=== PATIENT | female | born 1960 ===

== ENCOUNTER 2017-09-30 06:56 | Emergency (ER) | payer OTHER ==
[2017-09-30 07:23] VITALS: TEMP 97.1
[2017-09-30] MEDS ORDERED: Morphine 4 MG/ML VIAL ONE (07:26)
--- NOTE | 2017-09-30 07:34 | ED PDOC ---
HPI: Back Time Seen by Provider: 09/30/17 07:00 Chief Complaint (Nursing): Back Pain Chief Complaint (Provider): Back pain History Per: Patient History/Exam Limitations: no limitations Onset/Duration Of Symptoms: Days (x1), Worse Since (this morning) Current Symptoms Are (Timing): Still Present Quality Of Discomfort: Burning Previous Symptoms: Back Pain Associated Symptoms: Other (dysuria, hematuria) Additional Complaint(s): Elvie Rincon is a 57 year old female, with a past medical history of HTN, kidney stones, and fusion of lower back, who presents to the emergency department complaining of right sided back pain associated with dysuria and hematuria onset since yesterday. Patient states this morning the back pain was more severe and she noticed blood in her urine with a burning pain. Patient had a surgery in her right kidney when she was 11. She denies any fever, or chills. No further medical complaints. PMD: None provided. Past Medical History Reviewed: Historical Data, Nursing Documentation, Vital Signs Vital Signs: Last Vital Signs Temp 97.1 F L 09/30/17 07:14 Pulse 81 09/30/17 07:14 Resp 19 09/30/17 07:14 BP 177/123 H 09/30/17 07:14 Pulse Ox 99 09/30/17 07:14 - Medical History PMH: HTN, Kidney Stones, Migraine, Chronic Kidney Disease - Surgical History Surgical History: Appendectomy Other surgeries: fusion of lower back - Family History Family History: States: Unknown Family Hx - Social History Current smoker - smoking cessation education provided: No Alcohol: None Drugs: Denies - Home Medications Home Medications: Ambulatory Orders Medication Instructions Recorded Ciprofloxacin HCl [Cipro] 500 mg PO BID #14 tab 09/30/17 Tamsulosin [Flomax] 0.4 mg PO DAILY #14 cap 09/30/17 Valsartan [Diovan] 160 mg PO BID 09/30/17 oxyCODONE/Acetaminophen [Percocet 1 tab PO Q6H PRN #5 tab 09/30/17 5/325 mg Tab] - Allergies Allergies/Adverse Reactions: Allergies Allergy/AdvReac Type Severity Reaction Status Date / Time ketorolac [From Toradol] Allergy RASH Verified 09/30/17 07:13 NSAIDS (Non-Steroidal Allergy RASH Verified 09/30/17 07:13 Anti-Inflamma Penicillins Allergy RASH Verified 09/30/17 07:13 shellfish derived Allergy RASH Verified 09/30/17 07:13 sumatriptan [From Imitrex] Allergy RASH Verified 09/30/17 07:13 Review of Systems ROS Statement: Except As Marked, All Systems Reviewed And Found Negative Constitutional: Negative for: Fever, Chills Genitourinary Female: Positive for: Dysuria, Hematuria Musculoskeletal: Positive for: Back Pain (right sided) Physical Exam - Reviewed Nursing Documentation Reviewed: Yes Vital Signs Reviewed: Yes - Physical Exam Appears: Positive for: Non-toxic Head Exam: Positive for: ATRAUMATIC, NORMAL INSPECTION, NORMOCEPHALIC Skin: Positive for: Normal Color, Warm, Dry Eye Exam: Positive for: Normal appearance Neck: Positive for: Normal, Painless ROM, Supple Cardiovascular/Chest: Positive for: Regular Rate, Rhythm. Negative for: Murmur Respiratory: Positive for: Normal Breath Sounds. Negative for: Accessory Muscle Use, Respiratory Distress Gastrointestinal/Abdominal: Positive for: Tenderness (right ) Back: Positive for: R CVA Tenderness Extremity: Positive for: Normal ROM. Negative for: Deformity, Swelling Neurologic/Psych: Positive for: Alert, Oriented - Laboratory Results Result Diagrams: 09/30/17 08:06 09/30/17 08:06 - ECG O2 Sat by Pulse Oximetry: 99 (RA) Pulse Ox Interpretation: Normal Medical Decision Making Medical Decision Making: Initial impression: abd pain rule out Renal calculi, back pain Initial Plan: --Abd & Pelvis W/O PO or IV contrast [CT] --Comp Metabolic Panel --CBC w/ differential --Morphine 4mg IV --Sodium Chloride 1,000 ml IV 999 mls/hr --Zofran Inj 4mg IV --Urine C&S --Urinalysis --reevaluation 08:44 Abd/Pelvis CT FINDINGS: LOWER THORAX: Unremarkable. LIVER: Unremarkable. No gross lesion or ductal dilatation. GALLBLADDER AND BILE DUCTS: Unremarkable. PANCREAS: Unremarkable. No gross lesion or ductal dilatation. SPLEEN: Unremarkable. ADRENALS: Unremarkable. No mass. KIDNEYS AND URETERS: A punctate intrarenal calculus or parenchymal calcification is seen at the upper pole right kidney laterally, however, there is no hydronephrosis identified bilaterally or perinephric reaction. No left-sided radiodense urolithiasis is identified. VASCULATURE: Unremarkable. No aortic aneurysm. BOWEL: Unremarkable. No obstruction. Evaluation of the gastrointestinal tract is compromised by lack of oral contrast administration nevertheless. APPENDIX: The appendix not clearly identified. No overt CT sign of appendicitis. Clinically correlate for potential prior appendectomy though this is not definite. PERITONEUM: Unremarkable. No free fluid. No free air. LYMPH NODES: Unremarkable. No enlarged lymph nodes. BLADDER: Unremarkable. REPRODUCTIVE: Unremarkable. BONES: Prior post spinal fusion is seen including bilateral transpedicular screws at L5 and S1 connected by interconnecting rods. Intervertebral disc fusion is appreciated L5-S1 as well. OTHER FINDINGS: None. IMPRESSION: A probable punctate intrarenal calculus is appreciated at the upper pole right kidney. No definite obstructive uropathy bilaterally. Unremarkable appearing urinary bladder. Ureters appear normal caliber throughout. Remaining examination appears grossly nonfocal as imaged but is compromised by lack of contrast administration. Clinically correlate further whether there is a need for follow-up contrast abdomen and pelvis CT imaging. Incidental posterior spinal fusion is seen at the inferior lumbar sacral spine as discussed above. 10:00 --Looked under PNP for pt, she has no prior narcotics in [place], will give her flomax, cipro and percocet as needed. --UTI noted, will treat patient for UTI. Upon provider evaluation patient is medically stable, and requires no further treatment in the ED at this time. Patient will be discharged home with Rx for Cipro, percocet and flomax. Counseling was provided and all questions were answered regarding diagnosis and need for follow up with Urologist. There is agreement to discharge plan. Return if symptoms persist or worsen. Scribe Attestation: Documented by Ge Vazquez, acting as a scribe for Joe Arrington MD Provider Scribe Attestation: All medical record entries made by the Scribe were at my direction and personally dictated by me. I have reviewed the chart and agree that the record accurately reflects my personal performance of the history, physical exam, medical decision making, and the department course for this patient. I have also personally directed, reviewed, and agree with the discharge instructions and disposition. Disposition - Clinical Impression Clinical Impression: Back pain - Patient ED Disposition Is Patient to be Admitted: No Counseled Patient/Family Regarding: Studies Performed, Diagnosis, Need For Followup - Disposition Referrals: [facility] [Outside] [facility] [Outside] Yunior Colmenares Jr., MD [Staff Provider] - Disposition: Routine/Home Disposition Time: 09:35 Condition: IMPROVED Additional Instructions: follow up with you primary doctor/urologist in 1-2 days return to the ED with any worsening or concerning symptoms. Prescriptions: Ciprofloxacin HCl [Cipro] 500 mg PO BID #14 tab oxyCODONE/Acetaminophen [Percocet 5/325 mg Tab] 1 tab PO Q6H PRN #5 tab PRN Reason: Pain, Moderate (4-7) Tamsulosin [Flomax] 0.4 mg PO DAILY #14 cap Instructions: Urinary Tract Infection in Women (ED), Acute Low Back Pain (ED) Forms: [employer] ([place])
[2017-09-30] MEDS ORDERED: Sodium Chloride 0.9% 1,000 ML IV STA (07:35)
[2017-09-30] MEDS ORDERED: Morphine 4 MG/ML VIAL IV ONE (07:35)
[2017-09-30 08:10] LABS: BASO # 0.1 K/uL (0.0-0.2); BASO % 1.4 % (0.0-2.0); EOS # 0.6 K/uL (0.0-0.7); EOS % 7.2 % (0.0-4.0); HEMOGLOBIN 14.7 g/dL (12.0-16.0); LYMPH # 1.6 K/uL (1.0-4.3); LYMPH % 20.9 % (20.0-40.0); MEAN CELL VOLUME 87.2 fl (81.0-99.0); MEAN CORPUSCULAR HEMOGLOBIN 30.8 pg (27.0-31.0); MEAN CORPUSCULAR HGB CONC 35.3 g/dL (33.0-37.0); MEAN PLATELET VOLUME 8.8 fl (7.2-11.7); MONO # 0.6 K/uL (0.0-0.8); MONO % 7.6 % (0.0-10.0); NEUT # 4.9 K/uL (1.8-7.0); NEUT % 62.9 % (50.0-75.0); NRBC % 0.2 % (0.0-0.0); RBC 4.79 Mil/uL (3.80-5.20); RED CELL DISTRIBUTION WIDTH 14.1 % (11.5-14.5); WHITE BLOOD COUNT 7.8 K/uL (4.8-10.8)
[2017-09-30 08:23] LABS: CALCIUM 9.7 mg/dL (8.4-10.2); GFR AFRICAN-AMERICAN > 60; GFR NON-AFRICAN AMERICAN > 60
[2017-09-30] MEDS ORDERED: HYDROmorphone 0.5 mg/0.5 ml ISec ONE (08:28)
[2017-09-30 08:33] LABS: ALB/GLOB RATIO 1.2 (1.0-2.1); ALBUMIN 4.3 g/dL (3.5-5.0); ALT/SGPT 26 U/L (9-52); AST/SGOT 37 U/L (14-36); BLOOD UREA NITROGEN 19 mg/dl (7-17)
[2017-09-30 08:35] LABS: SQUAMOUS EPITHIAL 2 /hpf (0-5); URINE BACTERIA RARE (<OCC); URINE BILIRUBIN NEGATIVE (NEGATIVE); URINE BLOOD LARGE (NEGATIVE); URINE CLARITY CLOUDY (Clear); URINE COLOR YELLOW (YELLOW); URINE GLUCOSE (UA) NEG (Normal); URINE LEUKOCYTE ESTERASE TRACE Leu/uL (Negative); URINE NITRATE NEGATIVE (NEGATIVE); URINE PROTEIN 30 mg/dL (NEGATIVE); URINE UROBILINOGEN 0.2-1.0 mg/dL (0.2-1.0)
[2017-09-30 08:41] VITALS: RESP 16
--- NOTE | 2017-09-30 08:46 | CT ---
PROCEDURE: CT Abdomen and Pelvis without intravenous contrast HISTORY: abd pain COMPARISON: None. TECHNIQUE: Helical CT of the abdomen and pelvis was performed without oral or intravenous contrast as per referring physician request. Contrast Dose: None Radiation dose: Total exam DLP = 396.61 mGy-cm. This CT exam was performed using one or more of the following dose reduction techniques: Automated exposure control, adjustment of the mA and/or kV according to patient size, and/or use of iterative reconstruction technique. FINDINGS: LOWER THORAX: Unremarkable. LIVER: Unremarkable. No gross lesion or ductal dilatation. GALLBLADDER AND BILE DUCTS: Unremarkable. PANCREAS: Unremarkable. No gross lesion or ductal dilatation. SPLEEN: Unremarkable. ADRENALS: Unremarkable. No mass. KIDNEYS AND URETERS: A punctate intrarenal calculus or parenchymal calcification is seen at the upper pole right kidney laterally, however, there is no hydronephrosis identified bilaterally or perinephric reaction. No left-sided radiodense urolithiasis is identified. VASCULATURE: Unremarkable. No aortic aneurysm. BOWEL: Unremarkable. No obstruction. Evaluation of the gastrointestinal tract is compromised by lack of oral contrast administration nevertheless. APPENDIX: The appendix not clearly identified. No overt CT sign of appendicitis. Clinically correlate for potential prior appendectomy though this is not definite. PERITONEUM: Unremarkable. No free fluid. No free air. LYMPH NODES: Unremarkable. No enlarged lymph nodes. BLADDER: Unremarkable. REPRODUCTIVE: Unremarkable. BONES: Prior post spinal fusion is seen including bilateral transpedicular screws at L5 and S1 connected by interconnecting rods. Intervertebral disc fusion is appreciated L5-S1 as well. OTHER FINDINGS: None. IMPRESSION: A probable punctate intrarenal calculus is appreciated at the upper pole right kidney. No definite obstructive uropathy bilaterally. Unremarkable appearing urinary bladder. Ureters appear normal caliber throughout. Remaining examination appears grossly nonfocal as imaged but is compromised by lack of contrast administration. Clinically correlate further whether there is a need for follow-up contrast abdomen and pelvis CT imaging. Incidental posterior spinal fusion is seen at the inferior lumbar sacral spine as discussed above.
[2017-09-30 10:35] VITALS: BP 153/103; PULSE 75
[2017-10-01 11:28] VITALS: O2SAT 99
== END 2017-09-30 10:36 | disposition home or self-care (01) ==
LOC: H.ER 06:56
DX: N39.0 Urinary tract infection, site not specified (principal); M54.5 Low back pain; I12.9 Hypertensive chronic kidney disease with stage 1 through stage 4 chronic kidney disease, or unspecified chronic kidney disease; Z87.442 Personal history of urinary calculi; Z88.0 Allergy status to penicillin
CPT/HCPCS: 74176; 80053; 81003; 81025; 85025; 87086; 96374; 99283; J1170; J2270; J2405; J7040